=== PATIENT | female | born 1945 | race Caucasian/White ===

== ENCOUNTER 2019-05-06 07:18 | Inpatient (IN) ==
--- NOTE | 2019-04-11 10:16 | PAT Medication Instructions ---
Medication Instructions Date of Service April 11, 2019 Home Medications aspirin [Aspirin Low Dose] 81 mg PO QAM calcium carbonate-vitamin D3 [Calcium 600 + D(3)] 1 cap PO QAM folic acid 1 mg PO QAM hydroxychloroquine [Plaquenil] 200 mg PO QAM ibuprofen 800 mg PO TID PRN methotrexate sodium 20 mg PO WK omeprazole 20 mg PO DAILY PRN sulfasalazine 1,000 mg PO BID valsartan 80 mg PO QAM ASK your surgeon for instructions ibuprofen 800 mg PO TID PRN ASK your prescriber and surgeon hydroxychloroquine [Plaquenil] 200 mg PO QAM methotrexate sodium 20 mg PO WK sulfasalazine 1,000 mg PO BID DO NOT take the morning of surgery calcium carbonate-vitamin D3 [Calcium 600 + D(3)] 1 cap PO QAM folic acid 1 mg PO QAM valsartan 80 mg PO QAM Take morning of surgery With a small sip of water, OTHERWISE NOTHING TO EAT OR DRINK AFTER MIDNIGHT: aspirin [Aspirin Low Dose] 81 mg PO QAM omeprazole 20 mg PO DAILY PRN (if needed) Other Notes If you have any questions please call us at [phone] or [phone] or [phone] or [phone]
--- NOTE | 2019-04-11 11:44 | Anesthesiology Consultation ---
Date of Service April 11, 2019 Assessment & Plan (1) Encounter for pre-operative examination: Blood pressure elevated on exam today. Pt monitors BP daily at home- usually 130-140s systolically. Pt will continue to monitor and call PCP if >140 systolically. Pt educated to check with rheum regarding pre op instructions on rheumatological medications Chart Review Chart Review: Acceptable Risk for Surgery and Patient seen in Pre Admission Testing Teaching & Discussion Pre-Anesthesia Teaching/Discussion Notes: Instructed NPO after midnight before surgery,except medications with 15 cc of water. Medication instructions provided according to the PAT guidelines. History Surgery Operation Date: 05/06/19 08:30 Proposed Procedures p Right Anterior Total Hip Arthroplasty - Ronal Lucio, Height/Weight Height: 4 ft 9 in Weight: 60.6 kg Allergies Allergy/AdvReac Type Severity Reaction Status Date / Time lisinopril AdvReac Severe Cough Verified 04/11/19 10:52 Medications Home Medications Medication Instructions Recorded Confirmed Last Taken aspirin [Aspirin Low Dose] 81 mg PO QAM 04/04/19 04/11/19 Unknown calcium carbonate-vitamin D3 1 cap PO QAM 04/04/19 04/11/19 Unknown [Calcium 600 + D(3)] folic acid 1 mg PO QAM 04/04/19 04/11/19 Unknown hydroxychloroquine [Plaquenil] 200 mg PO QAM 04/04/19 04/11/19 Unknown ibuprofen 800 mg PO TID PRN 04/04/19 04/11/19 Unknown methotrexate sodium 20 mg PO WK 04/04/19 04/11/19 Unknown omeprazole 20 mg PO DAILY PRN 04/04/19 04/11/19 Unknown sulfasalazine 1,000 mg PO BID 04/04/19 04/11/19 Unknown valsartan 80 mg PO QAM 04/04/19 04/11/19 Unknown Past Medical History Medical History Acid reflux Controlled with diet and Omeprazole Hyperlipidemia Hypertension Osteoarthritis Rheumatoid arthritis Exercise / Class Metabolic Activity II 4-5 Yardwork/Stairs/Walk up hill (no chest pain or SOB with one flight of stairs ) Past Family History Family History Brother Family history of diabetes mellitus Other No family history of adverse response to anesthesia Past Surgical History Surgical History History of bilateral tubal ligation History of tooth extraction Past Anesthesia History No Hx of Anesthesia Complications and No Family Hx of Anesthesia Complications History of PONV No Hx of PONV and No Hx of Motion Sickness Social History Smoking Status: Never smoker Do You Dip or Chew Tobacco: No Hx Alcohol Use: Yes Alcohol type: beer and wine alcohol intake frequency: a few times a month Hx Substance Use: No substance use type: does not use Review of Systems Reflux- only aggrevated by certain foods- well controlled with Omeprazole. RA stable- follows with rheum. Patient denies chest pain, shortness of breath, dyspnea on exertion,, cough, wheezing, palpitations. Physical Exam Vital Signs VITALS BP 178/84; manual BP 180/90 P 81 TEMP 97.9 SP02 92% RESP 16 Constitutional no acute distress ENMT Mouth: + dentures Thyromental Distance: > or= 3.5 Finger Breadths Mallampati Class: III Full dentures top and bottom Neck neck not thick and neck extension not limited Respiratory normal respiratory effort; no respiratory distress Auscultation: lungs clear to auscultation bilaterally; no wheezes Cardiovascular Rate/Rhythm: regular rate and regular rhythm Musculoskeletal Spine: normal cervical ROM and no pain with cervical ROM Neurologic moves all extremities Psychiatric Orientation: alert Testing Laboratory Results 04/11/19 12:09 04/11/19 12:09 PT 10.3 Seconds (9.0-12.0) 04/11/19 12:09 INR 1.0 (0.9-1.1) 04/11/19 12:09 APTT 25.1 Seconds (21.0-31.0) 04/11/19 12:09 Blood Type A Positive 04/11/19 12:09 Antibody Screen NEGATIVE 04/11/19 12:09 Electrocardiogram Date: 04/11/19 Findings: + NSR @ (82) Chest X-Ray Date: 04/11/19 Findings: + NAD Cervical Spine Date: 04/11/19 No evidence for cervical spine instability during flexion or extension.Moderate multilevel facet arthrosis. Mild multilevel degenerative disc disease. Minimal anterolisthesis of C6 on C7
--- NOTE | 2019-04-11 12:54 | XRay Report ---
XR chest Pre-admission PA/Lat CLINICAL HISTORY: Preoperative chest COMPARISON STUDY: No previous studies for comparison. FINDINGS: The cardiac and mediastinal contours are normal. There is no evidence of focal pulmonary co nsolidation. There is no evidence of failure. No pleural effusions are visualized.[ IMPRESSION: No active disease in the chest. ACT 112: Negative or not required by law. Electronically signed by: Jaime Caro M.D. 04/11/2019 12:53 PM
--- NOTE | 2019-04-11 13:15 | XRay Report ---
XR cervical spine 2V flex,ext CLINICAL HISTORY: preop- RA COMPARISON STUDY: No previous studies for comparison. FINDINGS: There is minimal anterolisthesis of C6 on C7. There is no evidence for cervical spine insta bility during flexion or extension. There is moderate multilevel facet arthrosis and mild multilevel degenerative disc disease. No fracture or suspicious lesion is identified on these lateral radiograph s. Prevertebral soft tissues are unremarkable. IMPRESSION: 1. No evidence for cervical spine instability during flexion or extension. 2. Moderate multilevel facet arthrosis. Mild multilevel degenerative disc disease. ACT 112: Negative or not required by law. Electronically signed by: Efren Ghotra M.D. 04/11/2019 1:14 PM
[2019-04-11 13:16] LABS: Basophils # (auto) 0.07 K/uL (0-0.2); Basophils % (auto) 1.6 %; Eosinophils # (auto) 0.21 K/uL (0-0.5); Eosinophils % (auto) 4.9 %; Hematocrit (blood only) 37.1 % (37-47); Hemoglobin 11.4 g/dL (12.0-16.0); Immature Granulocytes # (auto) 0.02 K/uL (0.00-0.02); Immature Granulocytes % (auto) 0.5 %; Lymphocytes # (auto) 0.82 K/uL (1.2-3.4); Lymphocytes % (auto) 19.3 %; Mean Corpuscular Hemoglobin 30.8 pg (25-34); Mean Corpuscular Hgb Conc 30.7 g/dL (32-36); Mean Corpuscular Volume 100.3 fL (80-100); Mean Platelet Volume 9.6 fL (7.4-10.4); Monocytes # (auto) 0.49 K/uL (0.11-0.59); Monocytes % (auto) 11.5 %; Neutrophils # (auto) 2.64 K/uL (1.4-6.5); Neutrophils % (auto) 62.2 %; Platelet Count 193 K/uL (130-400); RDW Coefficient of Variation 15.1 % (11.5-14.5); RDW Standard Deviation 54.6 fL (36.4-46.3); White Blood Count 4.25 K/uL (4.8-10.8)
[2019-04-11 13:23] LABS: BUN Creatinine Ratio 31.6 (10-20); Calcium 9.4 mg/dl (8.5-10.1); Creatinine Clr Calc Pharmacy 55.1 ml/min; Est GFR (African American) 100.8; Potassium 4.2 mmol/L (3.5-5.1)
[2019-04-11 13:32] LABS: Partial Thromboplastin Ratio 0.9; Partial Thromboplastin Time 25.1 Seconds (21.0-31.0); Prothrombin Time 10.3 Seconds (9.0-12.0)
--- NOTE | 2019-04-11 20:11 | Electrocardiogram Report ---
Test Reason : Blood Pressure : / mmHG Vent. Rate : 082 BPM Atrial Rate : 082 BPM P-R Int : 174 ms QRS Dur : 082 ms QT Int : 374 ms P-R-T Axes : 074 056 060 degrees QTc Int : 436 ms Normal sinus rhythm Normal ECG No previous ECGs available Confirmed by Davon To ([id number]) on 04/11/2019 8:10:38 PM Referred By: Ronal Lucio Confirmed By:Gino To
--- NOTE | 2019-05-04 07:38 | History & Physical Report ---
Date of Service May 04, 2019 Assessment & Plan (1) Rheumatoid arthritis involving right hip: We will proceed with a right anterior total of arthroplasty. Postoperatively she will be started on aspirin for DVT prophylaxis. She can start back up on her methotrexate and her Plaquenil postoperatively. She will be kept overnight in the hospital for postoperative medical management. She plans to use energy physical therapy upon discharge. Present on Admission?: Yes History of Present Illness Chief Complaint: Rheumatoid arthritis of the right hip Primary Care Provider: Tyra Ramos DO Zari is a pleasant 73-year-old female who has been dealing with chronic increasing right hip and groin pain. She does have a diagnosis of rheumatoid arthritis. X-rays and clinical examination of the right hip do show advanced degenerative joint disease. After failing years of conservative treatment, she has elected to proceed with a right anterior total hip arthroplasty. Allergies Allergy/AdvReac Type Severity Reaction Status Date / Time lisinopril AdvReac Severe Cough Verified 04/11/19 10:52 Home Medications Home Medications Medication Instructions Recorded Confirmed Type aspirin [Aspirin Low Dose] 81 mg PO QAM 04/04/19 04/11/19 History calcium carbonate-vitamin D3 1 cap PO QAM 04/04/19 04/11/19 History [Calcium 600 + D(3)] folic acid 1 mg PO QAM 04/04/19 04/11/19 History hydroxychloroquine [Plaquenil] 200 mg PO QAM 04/04/19 04/11/19 History ibuprofen 800 mg PO TID PRN 04/04/19 04/11/19 History methotrexate sodium 20 mg PO WK 04/04/19 04/11/19 History omeprazole 20 mg PO DAILY PRN 04/04/19 04/11/19 History sulfasalazine 1,000 mg PO BID 04/04/19 04/11/19 History valsartan 80 mg PO QAM 04/04/19 04/11/19 History Past Med/Surg History Medical History Acid reflux Controlled with diet and Omeprazole Hyperlipidemia Hypertension Osteoarthritis Rheumatoid arthritis Surgical History History of bilateral tubal ligation History of tooth extraction Family History Brother Family history of diabetes mellitus Other No family history of adverse response to anesthesia Social History Preferred Language: Ethiopian Communication Ability: Effective 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 Beliefs That Will Affect Care: None Current Living Situation: Spouse Other Information That Helps Us Care for You: No Feels Safe at Home: Yes Safety Concerns: Feels Safe At This Time Smoking Status: Never smoker Do You Dip or Chew Tobacco: No ; Second Hand Exposure: Yes (hx as a child) ; Tobacco Cessation Education Requested by Patient: No Hx Alcohol Use: Yes Alcohol type: beer and wine Hx Substance Use: No Review of Systems All systems reviewed & are unremarkable except as noted in HPI & below Physical Exam Constitutional: WD/WN, vitals as above Eyes: PERRL, conjunctivae normal, anicteric sclerae ENMT: external ear and nose normal, oropharynx normal Neck: trachea midline, no thyromegaly Respiratory: normal respiratory effort Cardiovascular: RRR, no murmur, no edema Gastrointestinal (Abdomen): normal bowel sounds, soft, nontender, no hepatosplenomegaly Musculoskeletal: Physical examination of the right hip reveals decreased range of motion with flexion, internal and external rotation. There is significant groin pain with forced internal rotation of the hip his leg lengths are essentially equal. Psychiatric: A+Ox3, euthymic affect Results & Data Diagnostic Findings Radiographs of the right hip and pelvis demonstrate advanced osteoarthritis with joint space narrowing osteophyte formation and [id number] articulation.
[~2019-05-06 07:18] MED LIST: ACETAMINOPHEN 500 MG TAB PO SCH; BUPIVACAINE 0.5 % 5 MG/1 ML PF 10ML VIAL ONE; CEFAZOLIN 1000MG 1,000 MG/7.5 ML SYR IV SCH; FAMOTIDINE 20 MG TAB PO SCH; GABAPENTIN 300 MG CAP PO SCH; LR 500ML BOLUS, THEN 15ML/HR IV SCH; LR 60ML/HR IV SCH; ROPIVACAINE 0.5% HCL/PF 150 MG, BUPIVACAINE 0.5% MPF 30 ML, EPINEPHrine 30MG/30ML (OR U... INSTIL SCH; TRANEXAMIC ACID 1,000 MG **IV Intra-op IV SCH; TRANEXAMIC ACID 1,000 MG **IV Pre-op IV SCH
[2019-05-06] MEDS ORDERED: TRANEXAMIC ACID / 0.7% NACL 1000MG/100ML BAG IV ONE (08:04)
[2019-05-06] MEDS ORDERED: GABAPENTIN 300 MG CAP ONE (08:04)
[2019-05-06] MEDS ORDERED: ACETAMINOPHEN 500 MG TAB ONE (08:04)
[2019-05-06] MEDS ORDERED: FAMOTIDINE 20 MG TAB ONE (08:04)
[2019-05-06] MEDS ORDERED: CEFAZOLIN 1,000 MG/7.5 ML IV PUSH IV ONE (08:05)
--- NOTE | 2019-05-06 08:30 | History & Physical Bridge Note ---
Date of Service May 06, 2019 History & Physical Bridge Note I have examined the patient, reviewed the History & Physical and in the interval since the performance of the History & Physical I have noted the following changes of clinical significance: no changes noted
[2019-05-06] MEDS ORDERED: PROPOFOL IV EMULSION 10 MG/ML 20 ML VIAL IV ONE (09:03)
[2019-05-06] MEDS ORDERED: MIDAZOLAM HCL 1 MG/ML 2ML VIAL ONE (09:03)
[2019-05-06] MEDS ORDERED: LIDOCAINE HCL 2% 2 ML VIAL/AMP(20MG/ML) INFIL ONE (09:03)
[2019-05-06] MEDS ORDERED: ORTHO JOINT ANESTHETIC ONE (09:04)
[2019-05-06] MEDS ORDERED: ATROPINE SULFATE 0.1 MG/ML 10ML SYR IV PRN (09:33)
[2019-05-06] MEDS ORDERED: HYDROmorphone INJ 1 MG/ML SYRINGE IV PRN (09:33)
[2019-05-06] MEDS ORDERED: ONDANSETRON INJ 2 MG/ML 2 ML VIAL IV PRN ×2 (09:33→12:41)
[2019-05-06] MEDS ORDERED: KETOROLAC TROMETHAMINE 15 MG/ML VIAL IV PRN (09:33)
[2019-05-06] MEDS ORDERED: ePHEDrine sulfate 50 MG/ML AMP IV PRN (09:33)
--- NOTE | 2019-05-06 11:09 | Operative Report ---
PG Post Operative Report Pre & Post Diagnosis Operation Date: 05/06/19 10:10 Pre-Op Diagnosis: RIGHT HIP DEGENERATIVE JOINT DISEASE Post-Op Diagnosis: RIGHT HIP DEGENERATIVE JOINT DISEASE I identified the patient and participated in the time-out.: Yes Procedure Operation Date: 05/06/19 10:10 Actual Procedures p Right Anterior Total Hip Arthroplasty(Right) - Ronal Lucio DO Surgeon Ronal Lucio DO Packaging Technician oRnal Vo PAC Estimated Blood Loss 250 Findings Consistent with Post-Op Diagnosis Specimens Right femoral head Complications none Disposition Disposition: Recovery Room Indications Zari is a pleasant 73-year-old female with chronic increasing right hip and groin pain. X-rays and clinical examination have been diagnostic for advanced rheumatoid arthritis of the right hip. After failing conservative treatment, she elected to proceed with a right anterior total hip arthroplasty. Description of Procedure Implants used I used a Biomet Taperloc total hip arthroplasty system with a size 7 high offset Taperloc stem, a 48 mm G7 cup with a 25mm screw, an E1 polyethylene liner, a 32 mm ceramic head with a -6 neck. Zari arrived at the hospital for the above procedure. She was seen in the preoperative holding area and the operative extremity was identified and signed. She was given a spinal anesthetic, a preoperative antibiotic, and TXA. She was then taken back to the operating room and laid on the table in the supine position. She was given basic sedation. The operative leg was secured to a Puristst leg positioner. The hip was then prepped and draped in sterile fashion. A timeout was done and the patient and the operative extremity was properly identified. An anterior approach was used. Dissection was taken down through the fascia and the tensor muscle belly was retracted laterally and the rectus was retracted medially. The circumflex vessels were identified and ligated. The capsule was then incised and tagged for later repair. The femoral neck was then cut and the femoral head was removed. The acetabulum was exposed. Time was spent doing a complete circumferential labral release. Sequential reaming of the acetabulum up to a size 47 reamer was done. Final reamings were done under fluoroscopy to ensure appropriate version. A Biomet 48 mm G7 cup was then impacted into place. A single 25 mm screw was placed. The E1 polyethylene liner was then snapped into place. Surrounding soft tissues were then injected with 100 cc of an orthopedic pain control cocktail. The proximal femur was then exposed. Sequential broaching up to a size 7 broach was done. Off that broach a size 32 head with a -6 neck was trialed. The hip was reduced and fluoroscopic images showed anatomic alignment of the implants in acceptable length. The broach was removed. The final size 7 high offset Taperloc stem was then impacted into place. A ceramic 32 mm head with a -6 neck was then impacted onto the stem and the hip was reduced. Final fluoroscopic images showed anatomic alignment of the hip. The capsule was then closed with #1 Vicryl suture. A dilute betadyne lavage was then done for 3 minutes. The joint was then irrigated with normal saline solution. The fascia was closed with #1 PDS suture. Skin was closed with 2-0 Vicryl, [place], and a Arianna VAC dressing. She was then transferred to a hospital bed and taken to the post anes thesia care unit in stable condition. She tolerated the procedure well. I attest to the content of the Intraoperative Record and any orders documented therein. Any exceptions are noted below.
--- NOTE | 2019-05-06 11:40 | Fluoroscopy Report ---
FL hip RT 1V CLINICAL HISTORY: RT ANTERIOR TOTAL HIP ARTHROPLASTY COMPARISON STUDY: None FLUOROSCOPY TIME: 30 seconds. NUMBER OF FLUOROSCOPIC IMAGES: 1 FINDINGS: A single intraoperative fluoroscopic spot image reveals postsurgical changes of a total rig ht hip arthroplasty. There is no dislocation IMPRESSION: Intraoperative radiographs demonstrating a total right hip arthroplasty. ACT 112: Negative or not required by law. Electronically signed by: Jaime Caro M.D. 05/06/2019 11:39 AM
--- NOTE | 2019-05-06 12:05 | Anesthesiology Progress Note ---
Date of Service May 06, 2019 Anesthesia Post Procedure Vital Signs Vital Signs: Temp Pulse Pulse Resp BP Pulse Ox 05/06/19 11:55 64 20 149/57 H 100 05/06/19 11:45 63 23 139/58 L 100 05/06/19 11:38 36.1 C L 65 16 122/56 L 100 05/06/19 07:49 36.8 C 78 18 205/79 H 97 Transfer of Care Handoff Completed per policy Notes Mental Status: alert / awake / arousable Patient Amnestic to Procedure: Yes Nausea / Vomiting: adequately controlled Pain: adequately controlled Airway Patency, RR, SpO2: stable & adequate BP & HR: stable & adequate Hydration State: stable & adequate Neuraxial Anesthesia: was administered and sensory block is resolving Anesthetic Complications: no major complications apparent
--- NOTE | 2019-05-06 12:34 | XRay Report ---
SINGLE VIEW PELVIS; SINGLE VIEW RIGHT HIP CLINICAL HISTORY: Postoperative examination. FINDINGS: An AP portable view of the hips and pelvis with a crosstable lateral portable view of the r ight hip are obtained. A bipolar right hip arthroplasty is in near-anatomic alignment. A single corti beck lag screw transfixes the acetabular cup. No acute fracture is identified. There are expected post operative changes overlying the right hip including skin clips, subcutaneous gas, and soft tissue swe lling. Moderate degenerative joint space narrowing is noted in the left hip. IMPRESSION: Expected postoperative findings status post right hip arthroplasty. No acute fracture is seen. ACT 112: Negative or not required by law. Electronically signed by: Yadiel Lo M.D. 05/06/2019 12:33 PM
[2019-05-06] MEDS ORDERED: METOCLOPRAMIDE HCL INJ 5 MG/ML 2 ML VIAL IV PRN (12:41)
[2019-05-06] MEDS ORDERED: NALOXONE HCL 0.4 MG/1 ML VIAL/CARP IV PRN (12:41)
[2019-05-06] MEDS ORDERED: bisacodyL 10 MG SUPP PR PRN (12:41)
[2019-05-06] MEDS ORDERED: MAGNESIUM HYDROXIDE SUSP 30 ML UDC PO PRN (12:41)
[2019-05-06] MEDS ORDERED: HYDROmorphone INJ 0.5 MG/0.5 ML SYR IV PRN (12:41)
[2019-05-06] MEDS ORDERED: SODIUM CHLORIDE 0.9% 1000ML 1,000 ML IV SCH (12:41)
[2019-05-06] MEDS ORDERED: OXYCODONE HCL IR 5 MG TAB (IMMEDIATE RELEASE) PO PRN (12:41)
[2019-05-06] MEDS ORDERED: PANTOprazole 40 MG TAB PO PRN (12:41)
[2019-05-06] MEDS: MISSING PHYSICIAN SIGNATURE ON ORDER SCH ×2 (12:47→12:48)
[2019-05-06] MEDS ORDERED: INFLUENZA VACCINE HIGH DOSE 65+ 0.5 ML SYR IM ONE (12:59)
[2019-05-06] MEDS ORDERED: INFLUENZA ADMINISTRATION CHARGE ONE (12:59)
[2019-05-06] MEDS: KETOROLAC TROMETHAMINE 15 MG/ML VIAL IV SCH ×2 (14:19→19:06)
[2019-05-06] MEDS: ACETAMINOPHEN 500 MG TAB PO SCH ×2 (14:19→21:16)
[2019-05-06] MEDS: CEFAZOLIN 2000MG 2,000 MG/15 ML SYR IV SCH (17:18)
[2019-05-06] MEDS: sulfaSALAzine 500 MG TABLET PO SCH (20:00)
[2019-05-06] MEDS: ASPIRIN 81 MG ECTAB PO SCH (20:01)
[2019-05-06] MEDS: DOCUSATE SODIUM 100 MG CAP PO SCH (20:01)
[2019-05-06] MEDS ORDERED: SENNA 8.6 MG TAB PO SCH (21:00)
[2019-05-07] MEDS: KETOROLAC TROMETHAMINE 15 MG/ML VIAL IV SCH ×2 (01:59→08:51)
[2019-05-07] MEDS: CEFAZOLIN 2000MG 2,000 MG/15 ML SYR IV SCH (02:00)
[2019-05-07] MEDS: ACETAMINOPHEN 500 MG TAB PO SCH (05:55)
[2019-05-07 06:04] LABS: Basophils # (auto) 0.05 K/uL (0-0.2); Basophils % (auto) 0.6 %; Eosinophils # (auto) 0.12 K/uL (0-0.5); Eosinophils % (auto) 1.4 %; Hemoglobin 9.8 g/dL (12.0-16.0); Immature Granulocytes # (auto) 0.02 K/uL (0.00-0.02); Immature Granulocytes % (auto) 0.2 %; Lymphocytes # (auto) 1.03 K/uL (1.2-3.4); Lymphocytes % (auto) 11.9 %; Mean Corpuscular Hemoglobin 31.7 pg (25-34); Mean Corpuscular Hgb Conc 31.6 g/dL (32-36); Mean Corpuscular Volume 100.3 fL (80-100); Mean Platelet Volume 9.7 fL (7.4-10.4); Monocytes # (auto) 0.88 K/uL (0.11-0.59); Monocytes % (auto) 10.1 %; Neutrophils # (auto) 6.59 K/uL (1.4-6.5); Neutrophils % (auto) 75.8 %; Platelet Count 143 K/uL (130-400); RDW Coefficient of Variation 15.4 % (11.5-14.5); RDW Standard Deviation 56.1 fL (36.4-46.3); Red Blood Count 3.09 M/uL (4.2-5.4); White Blood Count 8.69 K/uL (4.8-10.8)
[2019-05-07 06:33] LABS: BUN Creatinine Ratio 27.5 (10-20); Calcium 8.7 mg/dl (8.5-10.1); Creatinine Clr Calc Pharmacy 55.7 ml/min; Est GFR (African American) 100.3; Est GFR (Non-African American) 86.6; Potassium 3.9 mmol/L (3.5-5.1)
--- NOTE | 2019-05-07 06:43 | Orthopedic Progress Note ---
Date of Service May 07, 2019 Assessment & Plan (1) History of right hip replacement: Overall she is doing fairly well. She will be seen by physical therapy today for ambulation and range of motion exercises. She is on aspirin for DVT prophylaxis. She can be discharged home later this afternoon if she is feeling okay. We will see how she does this morning with physical therapy. If she does go home, she will follow-up with orthopedics in 2 weeks. Present on Admission?: Yes Subjective Zari was seen and examined at bedside this morning. Overall she is doing very well. She is not having too much pain in the right hip. She is already been up and ambulating to the bathroom. She has no complaints. Physical Exam Musculoskeletal: On physical examination of the right hip, the Arianna VAC dressing is to suction. Her leg lengths are equal. She has active dorsiflexion and plantarflexion of her right ankle. She complains of some numbness over the anterior lateral aspect of the thigh. Results & Data ([facility]) Vital Signs (Past 12 Hours) Vital Signs Temp Pulse Resp BP BP Pulse Ox 05/07/19 03:47 36.5 C 61 16 123/63 98 05/07/19 00:12 36.3 C L 68 16 123/64 96 05/06/19 19:46 36.7 C 69 16 145/70 H 96 Laboratory Results H & H 04/11/19 05/07/19 Range/Units 12:09 05:20 Hgb 11.4 L 9.8 L (12.0-16.0) g/dL Hct 37.1 31.0 L (37-47) % Coagulation 04/11/19 Range/Units 12:09 INR 1.0 (0.9-1.1) Diagnostic Findings Postoperative x-rays of the right hip show the prosthesis to be in anatomic alignment without any evidence of fracture, dislocation, or loosening. PG Care Time/CCT Total # of Minutes Spent Total Time Spent with Patient: Total time spent is greater than 50% in coordination of care (as documented) at patient's floor/unit and/or counseling patient: Coding Level of Care Code None Diagnoses History of right hip replacement Z96.641
--- NOTE | 2019-05-07 06:45 | Discharge Summary ---
Date of Service May 07, 2019 Admission HPI Per Admitting Provider Zari is a pleasant 73-year-old female who has been dealing with chronic increasing right hip and groin pain. She does have a diagnosis of rheumatoid arthritis. X-rays and clinical examination of the right hip do show advanced degenerative joint disease. After failing years of conservative treatment, she has elected to proceed with a right anterior total hip arthroplasty. Principal Diagnosis Right total hip arthroplasty Discharge Data Allergies Allergy/AdvReac Type Severity Reaction Status Date / Time lisinopril AdvReac Severe Cough Verified 05/06/19 07:46 Consultations 05/07/19 08:00 Consult Case Management - Discharge Planning Routine Procedures Performed Operation Date: 05/06/19 10:10 Actual Procedures p Right Anterior Total Hip Arthroplasty(Right) - Ronal Lucio DO Ordered Studies 05/06/19 10:10 FL fluoroscopy <1hr Routine FL hip RT 1V Routine Hospital Course (1) History of right hip replacement: On May 06, 2019 Zari arrived at [facility] and underwent a right anterior total hip arthroplasty without complication. Postoperatively she was started on aspirin for DVT prophylaxis and discharged to general orthopedic floors. Her hospital course was uneventful. On postop day #1 her H&H was stable and her pain was well controlled. She was able to participate well with physical therapy doing ambulation and range of motion exercises. She was then discharged home. She will follow-up with orthopedics in 2 weeks. Total Time Total Time Spent Total Time Spent (In Minutes): 20 Discharge Plan Discharge Items Patient Disposition: Home - Home Health Services Reason For Visit: RIGHT HIP DEGENERATIVE JOINT DISEASE Discharge Diagnosis: Right total hip arthroplasty Activity: As commented below Non-emergency contact: Surgeon Call non-emergency contact if: your wound has increased redness and your wound has increased drainage Follow-up/Referrals: Tyra Ramos DO [Primary Care Provider] - Diet: Regular Addtl Attending Provider Instructions: Activity and Therapy Recommendations: * If you are using [facility] then therapy will be provided at your home until they feel you have accomplished all of your goals. * If you are using [facility] then Physical Therapy will be provided until they feel you are ready to start Outpatient Physical Therapy. * If you are not using home therapy then Outpatient Physical Therapy should start about 3-5 days from your day of surgery. Therapy will last about 6-10 weeks * You were shown a series of exercises in the hospital. Do these exercises three times each day including the exercises you were shown in physical therapy. * Get up and walk several times each day.~ For the first four weeks, try not to stand or walk for more than one hour at a time. If you do stand or walk for more than one hour, you will not hurt anything, but your leg will likely swell.~~ * As you feel comfortable, you may change from the walker or crutches to a cane and~then to independent walking. Medications: * Narcotic You will likely be sent home from the hospital with a prescription for the narcotic pain medication that worked best throughout your stay. * Aspirin Most patients will be required to take Aspirin 81mg twice a day for 6 weeks after surgery. This is obtained [id number] and a prescription is not necessary. * Other medications may be prescribed for specific circumstances. If you have any questions, please call the office at . * Resume previous home medications unless otherwise instructed TEDs/Elastic Stockings: The white elastic stockings help limit swelling and prevent blood clots from forming in your legs. The more you wear them, the more they work. Wear them for six weeks. Dressing Care: You will likely have a purple VAC dressing after surgery. This dressing will keep the incision dry and promote early healing. After about 7 days the batteries will wear out and the VAC will lose suction. Simply remove the dressing at that time and throw everything away, including the small suction machine. Then, you may leave the virginia open to air or cover them with a dry dressing so they do not rub on your pants. The virginia will be removed at your 2 week follow-up appointment. Showering: You may shower immediately with the purple VAC dressing. Let the shower spray hit your opposite side and slowly pat the plastic dry. Do not soak the dressing. After the dressing is removed you may shower normally with the virginia exposed. Let soapy water run over the [place] and pat them dry. Things To Watch For: * Drainage from the incision site that occurs more than one week after your surgery. * Increased redness at the incision site. * Fever above 102 degrees Fahrenheit. * Unusual chest pain or shortness of breath. * [facility] at with any of the above problems Follow-Up Visit: Follow-up with Dr. Lucio 2-3 weeks after your day of surgery. An appointment was probably scheduled when you signed-up for surgery in the office. If you have any questions call Office Instructions: More detailed instructions as well as Frequently Asked Questions were provided in a folder by our office when you signed-up for surgery. Please review these instructions when you get home. If you have any further questions or concerns, please feel free to call the office at [phone] Pending Studies at Discharge: No Stand-Alone Forms: [facility], Smoking Cessation Medications and DC Order Prescriptions: New oxycodone 5 mg Tablet 5 mg PO Q4H PRN (Reason: pain) Qty: 30 RF: 0 Continued sulfasalazine 500 mg Tablet 1,000 mg PO BID RF: 0 ibuprofen 800 mg Tablet 800 mg PO TID PRN (Reason: Pain) RF: 0 valsartan 80 mg Tablet 80 mg PO QAM RF: 0 methotrexate sodium 2.5 mg Tablet 20 mg PO WK RF: 0 folic acid 1 mg Tablet 1 mg PO QAM RF: 0 hydroxychloroquine [Plaquenil] 200 mg Tablet 200 mg PO QAM RF: 0 Calcium 600 + D(3) 600 mg calcium- 200 unit Capsule 1 cap PO QAM RF: 0 omeprazole 20 mg Tablet,Delayed Release (Dr/Ec) 20 mg PO DAILY PRN (Reason: upset stomach) RF: 0 acetaminophen [Tylenol Extra Strength] 500 mg Tablet 1,000 mg PO QID PRN (Reason: Pain) RF: 0 Changed aspirin [Aspirin Low Dose] 81 mg Tablet,Delayed Release (Dr/Ec) 81 mg PO BID 42 Days Qty: 0 RF: 0 Discharge Orders: Discharge Order (Routine); Ordered 05/07/19 Ordered By: Ronal Lucio Admission Data Admit Date/Time: 05/06/19 11:41 Attending Provider: Ronal Lucio Admit Provider: Ronal Lucio Primary Care Provider: Trya Ramos Coding Level of Care Code D/C Day Management <30 mins Diagnoses History of right hip replacement Z96.641
[2019-05-07] MEDS ORDERED: dexAMETHasone 4 MG TAB PO SCH (08:00)
[2019-05-07] MEDS: ASPIRIN 81 MG ECTAB PO SCH (08:48)
[2019-05-07] MEDS: sulfaSALAzine 500 MG TABLET PO SCH (08:49)
[2019-05-07] MEDS: DOCUSATE SODIUM 100 MG CAP PO SCH (08:49)
[2019-05-07] MEDS ORDERED: VALSARTAN 80 MG TAB PO SCH (09:00)
[2019-05-07] MEDS ORDERED: FOLIC ACID 1 MG TAB PO SCH (09:00)
[2019-05-07] MEDS ORDERED: HYDROXYCHLOROQUINE SULFATE 200 MG TAB PO SCH (09:00)
[2019-05-07] MEDS ORDERED: MULTIVITAMIN TAB PO SCH (09:00)
[2019-05-12] MEDS ORDERED: metHOTREXate sodium 2.5 MG TAB PO SCH (09:00)
== END 2019-05-07 12:52 | disposition home health service (06) | DRG 470 ==
LOC: ASU 07:18 → OBSVTOIN 11:41 → 3E 11:41 → INTOOBSV 11:41